=== PATIENT | male | born 1985 | race African-American/Black ===

== ENCOUNTER 2016-11-30 09:03 | Emergency (ER) | payer MEDICAID ==
[~2016-11-30] VITALS: Ht 188 cm; Wt 83.9 kg
[2016-11-30] MEDS ORDERED: Morphine Sulfate 4mg/ml Inj IVP ONE ×3 (09:30→11:45)
[2016-11-30] MEDS ORDERED: Ketorolac 30mg Inj IV ONE (09:30)
[2016-11-30 09:40] LABS: BASOPHILS % (AUTO) 0.5 % (0.0-2.0); EOSINOPHILS % (AUTO) 0.3 % (0.0-3.0); LYMPHOCYTES % (AUTO) 19.2 % (20.0-45.0); MEAN CORPUSCULAR HEMOGLOBIN 31.4 PG (27.0-31.0); MEAN CORPUSCULAR HGB CONC 33.9 G/DL (32.0-36.0); MEAN CORPUSCULAR VOLUME 93 FL (80-99); MEAN PLATELET VOLUME 7.5 FL (6.5-10.1); MONOCYTES % (AUTO) 4.4 % (1.0-10.0); NEUTROPHILS % (AUTO) 75.6 % (45.0-75.0); PLATELET COUNT 229 K/UL (150-450); RED BLOOD COUNT 4.57 M/UL (4.70-6.10); RED CELL DISTRIBUTION WIDTH 12.5 % (11.6-14.8); WHITE BLOOD COUNT 13.6 K/UL (4.8-10.8)
[2016-11-30 09:51] LABS: ALANINE AMINOTRANSFERASE 15 U/L (3-41); ALBUMIN/GLOBULIN RATIO 1.3 (1.0-2.7); ANION GAP 10 (5-15); ASPARTATE AMINO TRANSFERASE 20 U/L (5-40); CALCIUM 8.8 mg/dL (8.6-10.2); CARBON DIOXIDE 30 mEQ/L (20-30); CHLORIDE 100 mEQ/L (98-107); GLOMERULAR FILTRATION RATE > 60 mL/min (>60); HEMOLYSIS 4; LIPASE 27 U/L (< 60); POTASSIUM 3.8 mEQ/L (3.4-4.9); SODIUM 140 mEQ/L (135-145); TOTAL PROTEIN 7.4 g/dL (6.6-8.7); TROPONIN I < 0.30 ng/mL (<=0.30)
[2016-11-30 10:00] VITALS: BP 127/57
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
[2016-11-30 11:55] LABS: APPEARANCE,URINE CLEAR; KETONES,URINE NEGATIVE (NEGATIVE); LEUKOCYTE ESTERASE ,URINE NEGATIVE (NEGATIVE); NITRITE,URINE NEGATIVE (NEGATIVE); PH,URINE 8 (4.5-8.0); PROTEIN,URINE NEGATIVE (NEGATIVE); UROBILINOGEN,URINE NORMAL MG/DL (0.0-1.0)
[2016-11-30 12:00] VITALS: BP 156/75
[2016-11-30] MEDS ORDERED: BENTYL10 MG ORAL (12:03)
[2016-11-30] MEDS ORDERED: NORCO 5-325 TA1 EACH ORAL (12:03)
[2016-11-30] MEDS ORDERED: RANITIDINE HCL150 MG ORAL (12:03)
[2016-11-30] MEDS ORDERED: ZOFRAN ODT4 MG ORAL (12:03)
[2016-11-30 12:10] VITALS: BP 136/76
--- NOTE | 2016-11-30 14:26 | Emergency Room Report ---
History of Present Illness General Chief Complaint: Abdominal Pain Source: Patient Present Illness HPI 31-year-old male presents ED complaining of abdominal pain with vomiting and diarrhea. States symptoms started this morning. Patient discussed pain is sharp, 8 out 10, upper abdomen, nonradiating. Notes multiple episodes of vomiting and diarrhea. Denies chest pain or shortness of breath. No fevers or chills. No other aggravating relieving factors. Denies any other associated symptom Allergies: Coded Allergies: No Known Allergies (Unverified , 11/30/16) Patient History Past Medical History: GERD Past Surgical History: none Pertinent Family History: none Social History: Denies: smoking, alcohol use, drug use Immunizations: UTD Reviewed Nursing Documentation: PMH: Agreed, PSxH: Agreed Nursing Documentation-PMH Hx Gastrointestinal Problems: Yes - GASTRITIS Review of Systems All Other Systems: negative except mentioned in HPI Physical Exam Vital Signs Date Time Temp Pulse Resp B/P (MAP) Pulse Ox O2 Delivery O2 Flow Rate FiO2 11/30/16 08:58 97.5 80 18 133/75 99 11/30/16 10:00 Room Air Sp02 EP Interpretation: reviewed, normal General Appearance: alert, GCS 15, non-toxic, mild distress Head: normocephalic, atraumatic Eyes: bilateral eye normal inspection, bilateral eye PERRL ENT: hearing grossly normal, normal pharynx, no angioedema, normal voice Neck: full range of motion, supple/symm/no masses Respiratory: chest non-tender, lungs clear, normal breath sounds, speaking full sentences Cardiovascular #1: regular rate, rhythm, no edema Cardiovascular #2: 2+ carotid (R), 2+ carotid (L), 2+ radial (R), 2+ radial (L) , 2+ dorsalis pedis (R), 2+ dorsalis pedis (L) Gastrointestinal: normal bowel sounds, soft, non-distended, no guarding, no rebound, tenderness Rectal: deferred Genitourinary: normal inspection, no CVA tenderness Musculoskeletal: back normal, gait/station normal, normal range of motion, non- tender Neurologic: alert, oriented x3, responsive, motor strength/tone normal, sensory intact, speech normal Psychiatric: judgement/insight normal, memory normal, no suicidal/homicidal ideation, anxious Reflexes: 3+ bicep (R), 3+ bicep (L), 3+ tricep (R), 3+ tricep (L), 3+ knee (R) , 3+ knee (L) Skin: normal color, no rash, warm/dry, well hydrated Lymphatic: no adenopathy Medical Decision Making Diagnostic Impression: Primary Impression: Abdominal pain Qualified Codes: R10.13 - Epigastric pain Additional Impression: Gastroenteritis ER Course Hospital Course 31-year-old M presents to ED with abdominal pain, vomiting, diarrhea Differential diagnosis includes-appendicitis, cholecystitis, small bowel obstruction, gastritis, Clinical course Patient placed on stretcher. After initial history and physical I ordered labs , IV fluids, pain medications and CT scan Labs - noted leukocytosis, electrolytes ok, LFTs normal, UA unremarkable CT scan shows no acute pathology Upon reassessment, patient states pain has improved. Given improvement in symptoms and lack of acute findings, I believe patient can be safely discharged to home. Patient agrees with plan I feel this is a highly complex case requiring extensive working including EKG/ Rhythm strip, Xray/CT/US, Blood/urine lab work, repeat exams while in ED, and administration of strong opiates/narcotics for pain control, admission to hospital or close patient follow up. Diagnosis - abdominal pain, gastroenteritis Stable and discharged to home with Rx Bentyl, Zofran, Zantac, [place]. Followup with PMD. Return to ED if symptoms recur or worsen Labs Test 11/30/16 09:15 11/30/16 11:30 White Blood Count 13.6 K/UL (4.8-10.8) Red Blood Count 4.57 M/UL (4.70-6.10) Hemoglobin 14.4 G/DL (14.2-18.0) Hematocrit 42.4 % (42.0-52.0) Mean Corpuscular Volume 93 FL (80-99) Mean Corpuscular Hemoglobin 31.4 PG (27.0-31.0) Mean Corpuscular Hemoglobin Concent 33.9 G/DL (32.0-36.0) Red Cell Distribution Width 12.5 % (11.6-14.8) Platelet Count 229 K/UL (150-450) Mean Platelet Volume 7.5 FL (6.5-10.1) Neutrophils (%) (Auto) 75.6 % (45.0-75.0) Lymphocytes (%) (Auto) 19.2 % (20.0-45.0) Monocytes (%) (Auto) 4.4 % (1.0-10.0) Eosinophils (%) (Auto) 0.3 % (0.0-3.0) Basophils (%) (Auto) 0.5 % (0.0-2.0) Sodium Level 140 mEQ/L (135-145) Potassium Level 3.8 mEQ/L (3.4-4.9) Chloride Level 100 mEQ/L (98-107) Carbon Dioxide Level 30 mEQ/L (20-30) Anion Gap 10 (5-15) Blood Urea Nitrogen 6 mg/dL (7-23) Creatinine 1.0 mg/dL (0.7-1.2) Estimat Glomerular Filtration Rate > 60 mL/min (>60) Glucose Level 132 mg/dL (74-106) Calcium Level 8.8 mg/dL (8.6-10.2) Total Bilirubin < 0.2 mg/dL (0.0-1.2) Aspartate Amino Transf (AST/SGOT) 20 U/L (5-40) Alanine Aminotransferase (ALT/SGPT) 15 U/L (3-41) Alkaline Phosphatase 59 U/L (40-129) Troponin I < 0.30 ng/mL (<=0.30) Total Protein 7.4 g/dL (6.6-8.7) Albumin 4.3 g/dL (3.5-5.2) Globulin 3.1 g/dL Albumin/Globulin Ratio 1.3 (1.0-2.7) Lipase 27 U/L (< 60) Urine Color Pale yellow Urine Appearance Clear Urine pH 8 (4.5-8.0) Urine Specific [place] 1.015 (1.005-1.035) Urine Protein Negative (NEGATIVE) Urine Glucose (UA) Negative (NEGATIVE) Urine Ketones Negative (NEGATIVE) Urine Occult Blood Negative (NEGATIVE) Urine Nitrite Negative (NEGATIVE) Urine Bilirubin Negative (NEGATIVE) Urine Urobilinogen Normal MG/DL (0.0-1.0) Urine Leukocyte Esterase Negative (NEGATIVE) CT/MRI/US Diagnostic Results CT/MRI/US Diagnostic Results : Imaging Test Ordered: CT A/P Impression no acute process Last Vital Signs Date Time Temp Pulse Resp B/P (MAP) Pulse Ox O2 Delivery O2 Flow Rate FiO2 11/30/16 12:10 55 14 136/76 Room Air 11/30/16 12:00 97.8 100 Status: improved Disposition: HOME, SELF-CARE Condition: Stable Scripts Ondansetron Odt* (ZOFRAN ODT*) 4 Mg Tab.rapdis 4 MG ORAL Q6H Y for Nausea & Vomiting, #30 TAB 0 Refills Prov: CECILLE DOMINGUEZ M.D. 11/30/16 Ranitidine Hcl* (ZANTAC*) 150 Mg Tablet 150 MG ORAL TWICE A DAY, #30 TAB Prov: CECILLE DOMINGUEZ M.D. 11/30/16 Dicyclomine Hcl* (BENTYL*) 10 Mg Capsule 10 MG ORAL FOUR TIMES A DAY, #20 CAP Prov: CECILLE DOMINGUEZ M.D. 11/30/16 Hydrocodone Bit/Acetaminophen 5-325* (NORCO 5-325*) 1 Each Tablet 1 TAB ORAL Q6H Y for For Pain, #10 TAB 0 Refills Prov: CECILLE DOMINGUEZ M.D. 11/30/16 Referrals: NOT [facility]OSEN [facility]/,REFERRING (PCP) Patient Instructions: Viral Gastroenteritis, Adult CECILLE DOMINGUEZ M.D. Nov 30, 2016 14:26
[2016-11-30] MEDS ORDERED: OMEPRAZOLE20 M2 ORAL (16:46)
[2016-11-30] MEDS ORDERED: PEPCID40 MG PO (16:46)
== END 2016-11-30 12:15 | disposition home or self-care (01) ==
LOC: EDBD 09:03 → EMR 09:53
DX: K52.9 Noninfective gastroenteritis and colitis, unspecified (principal)
CPT/HCPCS: 36415; 74177; 80053; 81003; 83690; 84484; 85025; 96361; 96374; 96375; 99284; J1885; J2270; J2405; Q9967

== ENCOUNTER 2016-11-30 15:01 | Emergency (ER) | payer MEDICAID ==
[~2016-11-30] VITALS: Ht 188 cm; Wt 79.4 kg
[~2016-11-30 15:01] MED LIST: BENTYL10 MG ORAL; NORCO 5-325 TA1 EACH ORAL; RANITIDINE HCL150 MG ORAL; ZOFRAN ODT4 MG ORAL
[2016-11-30] MEDS ORDERED: Lidocaine 2% Visc 15ml soln ORAL ONE (15:30)
[2016-11-30] MEDS ORDERED: Mylanta II UD 30ml ORAL ONE (15:30)
[2016-11-30] MEDS ORDERED: Dicyclomine HCl 10mg/5ml oral soln ORAL ONE (15:30)
[2016-11-30] MEDS ORDERED: Famotidine 20 MG/ 2ML VIAL IVP ONE (15:45)
[2016-11-30] MEDS ORDERED: Pantoprazole Inj IVP ONE (16:15)
[2016-11-30 16:26] VITALS: BP 148/84
[2016-11-30] MEDS ORDERED: Metoclopramide 10mg/2ml Inj IVP ONE (16:30)
[2016-11-30] MEDS ORDERED: Morphine Sulfate 4mg/ml Inj IVP ONE (16:30)
[2016-11-30] MEDS ORDERED: OMEPRAZOLE20 M2 ORAL (16:46)
[2016-11-30] MEDS ORDERED: PEPCID40 MG PO (16:46)
[2016-11-30 17:22] VITALS: BP 115/59
--- NOTE | 2016-11-30 18:08 | Emergency Room Report ---
History of Present Illness General Chief Complaint: Abdominal Pain Source: Patient Present Illness HPI The patient is a 31-year-old male presenting for abdominal pain. He was seen in this emergency department earlier today for the same complaint. The patient had a full workup done including blood work and CT scan and he was discharged home with prescription for pain medications. He received morphine in the emergency department and states that he was feeling better but then pain reappeared at home. It is now 10 out of 10 burning sensation to the mid upper abdomen and mid chest. He denies any known provoking factors. He is unsure of GERD history. He states he has IBS. He also admits to feeling of nausea with frequent liquid in his mouth. He denies other symptoms including fever, chills , shortness of breath, headache, back pain, rash, diarrhea, constipation Allergies: Coded Allergies: No Known Allergies (Unverified , 11/30/16) Patient History Past Medical History: see triage record Pertinent Family History: none Reviewed Nursing Documentation: PMH: Agreed, PSxH: Agreed Nursing Documentation-PMH Hx Gastrointestinal Problems: Yes - GASTRITIS Review of Systems All Other Systems: negative except mentioned in HPI Physical Exam Vital Signs Date Time Temp Pulse Resp B/P (MAP) Pulse Ox O2 Delivery O2 Flow Rate FiO2 11/30/16 15:05 97.5 60 15 148/84 99 Room Air Sp02 EP Interpretation: reviewed, normal General Appearance: no apparent distress, alert, GCS 15, non-toxic Head: normocephalic, atraumatic Eyes: bilateral eye normal inspection, bilateral eye PERRL ENT: hearing grossly normal, normal pharynx, no angioedema, normal voice Neck: full range of motion, supple/symm/no masses Respiratory: chest non-tender, lungs clear, normal breath sounds, speaking full sentences Cardiovascular #1: regular rate, rhythm, no edema Gastrointestinal: normal bowel sounds, soft, no mass, no guarding, tenderness - epigastric Rectal: deferred Genitourinary: normal inspection, no CVA tenderness Musculoskeletal: back normal, gait/station normal, normal range of motion, non- tender Neurologic: alert, oriented x3, responsive, motor strength/tone normal, sensory intact, speech normal Psychiatric: judgement/insight normal, memory normal, mood/affect normal, no suicidal/homicidal ideation Skin: normal color, no rash, warm/dry, well hydrated Lymphatic: no adenopathy Medical Decision Making PA Attestation Dr. Meredith is my supervising physician. Patient management was discussed with my supervising physician Diagnostic Impression: Primary Impression: Gastritis Qualified Codes: K29.00 - Acute gastritis without bleeding ER Course The patient is a 31-year-old male presenting for abdominal pain. Differential diagnoses considered but not limited to: Gastritis, esophagitis, GERD, gastroenteritis, peptic ulcer, perforated ulcer, among others Physical exam: Afebrile. No apparent distress There is tenderness to palpation over epigastric region only. No guarding. Nondistended. RRR Lungs clear to auscultation bilaterally Chest x-ray unremarkable. No signs of perforation The patient is given a GI cocktail and IV Pepcid and Protonix He states the pain has decreased but is still significant. He is then given morphine and states she is ready to be discharged Is discharged with prescription for Pepcid and omeprazole. He needs to follow up with his primary doctor and was told he needs endoscopy done. He understands. He is given a sheet of potential primary doctor locations as he does not have one. ER precautions given Chest X-Ray Diagnostic Results Chest X-Ray Diagnostic Results : Chest X-Ray Ordered: Yes # of Views/Limited/Complete: 1 View Indication: Chest Pain EP Interpretation: Yes Interpretation: no consolidation, no effusion, no pneumothorax, no acute cardiopulmonary disease Impression: No acute disease Electronically Signed by: Michael Meredith MD PA Scribe Text I am acting as scribe for my supervising physician. My supervising physician's interpretation of the chest xrays are there is no consolidation, no effusion, no acute cardiopulmonary disease, no pneumothorax Last Vital Signs Date Time Temp Pulse Resp B/P (MAP) Pulse Ox O2 Delivery O2 Flow Rate FiO2 11/30/16 17:22 97.5 61 15 115/59 99 Room Air Status: improved Disposition: HOME, SELF-CARE Condition: Improved Scripts Omeprazole (OMEPRAZOLE) 20 Mg Capsule. 20 MG ORAL DAILY, #30 CAP Prov: TERZIAN,STAN P.A. 11/30/16 Famotidine (PEPCID) 40 Mg Tablet 40 MG PO QHS, #7 TAB 0 Refills Prov: TERZIAN,STAN P.A. 11/30/16 Patient Instructions: Gastritis, Adult Additional Instructions: I discussed my findings with the patient. All questions and concerns have been answered. Treatment and medication compliance have been addressed. I advised the patient that they need to follow up with PMD in 3-5 days. Return to ED if symptoms worsen, new symptoms arise, or if needed for any reason. Patient verbalized understanding of discharge instructions. STAN AVILA Nov 30, 2016 18:08
--- NOTE | 2016-12-01 09:57 | Diagnostic Imaging Report ---
Indication: Chest pain Technique: XRAY CHEST 1 V Comparison: None Findings: The cardiomediastinal silhouette is within normal limits. There is no focal consolidation, pneumothorax or pleural effusion. Osseous structures demonstrate no acute abnormality. Metallic density projects over the left lateral chest. Impression: No acute cardiopulmonary disease. Metallic density projecting over the left lateral chest. Clinical correlation recommended.
== END 2016-11-30 17:54 | disposition home or self-care (01) ==
LOC: EMR 15:40
DX: K29.70 Gastritis, unspecified, without bleeding (principal)
CPT/HCPCS: 71010; 96374; 96375; 99284; C9113; J2270; S0028

== ENCOUNTER 2017-05-31 08:45 | Emergency (ER) | payer MEDICAID, OTHER ==
[~2017-05-31] VITALS: Ht 188 cm; Wt 72.6 kg
[~2017-05-31 08:45] MED LIST changes: +OMEPRAZOLE20 M2 ORAL; +PEPCID40 MG PO
[2017-05-31 09:03] VITALS: BP 97/58
--- NOTE | 2017-05-31 09:05 | Emergency Room Report ---
History of Present Illness General Chief Complaint: Upper Extremity Injury Source: Patient, Medical Record Present Illness HPI 31-year-old male presenting with right hand pain since yesterday. States that he punched an elevator wall yesterday as he was trying to redirect his anger. Sustained an abrasion to his right hand, states his tetanus is up-to-date. No human bites No other complaints Allergies: Coded Allergies: No Known Allergies (Unverified , 11/30/16) Patient History Past Medical History: see triage record Past Surgical History: none Pertinent Family History: none Reviewed Nursing Documentation: PMH: Agreed; PSxH: Agreed Nursing Documentation-PM Past Medical History: No History, Except For Hx Gastrointestinal Problems: Yes - GASTRITIS Review of Systems All Other Systems: negative except mentioned in HPI Physical Exam Vital Signs Date Time Temp Pulse Resp B/P (MAP) Pulse Ox O2 Delivery O2 Flow Rate FiO2 05/31/17 08:49 97.8 82 18 97/58 98 Room Air 97.9 Sp02 EP Interpretation: reviewed, normal General Appearance: alert, GCS 15, non-toxic, mild distress Head: normocephalic, atraumatic Eyes: bilateral eye normal inspection, bilateral eye PERRL, bilateral eye EOMI ENT: normal ENT inspection, normal pharynx, normal voice, moist mucus membranes Neck: normal inspection, full range of motion, supple Respiratory: normal inspection, lungs clear, normal breath sounds, no respiratory distress, no retraction, no wheezing, speaking full sentences, chest symmetrical Cardiovascular #1: normal inspection, regular rate, rhythm, no edema, normal capillary refill Cardiovascular #2: 2+ radial (R), 2+ radial (L) Gastrointestinal: normal inspection, non tender, soft, non-distended, no guarding Genitourinary: no CVA tenderness Musculoskeletal: other - Right hand with edema, ecchymosis, superficial well- healed abrasion noted to right hand, fourth and fifth metacarpal region, Limited range of motion of the hand secondary to pain, medial ulnar and radial nerve are intact Neurologic: normal inspection, alert, oriented x3, responsive, motor strength/ tone normal, sensory intact, normal gait, speech normal Psychiatric: normal inspection, judgement/insight normal, memory normal Skin: normal inspection, normal color, no rash, warm/dry, well hydrated, normal turgor Procedures Splinting Splinting : Consent: Verbal Location: R hand Hand-Made Type: plaster Splint: ulnar Pre-Proc Neuro Vasc Exam: normal Post-Proc Neuro Vasc Exam: normal Patient Tolerated: Well Complications: None Medical Decision Making Diagnostic Impression: Primary Impression: Fracture of fifth metacarpal bone of right hand ER Course 31-year-old male with right hand pain after punching a wall, occurred 5pm yesterday DDX: Contusion vs. fracture Plan: Pain control with motrin XR ER course: Patient already took Motrin prior to arrival X-ray noting 5th metacarpal fracture with minimal angulation ulnar gutter splint applied, before and after neurovascularly intact. Disposition: Patient is to be discharged home Patient instructed to keep splint on at all times, and to follow up with orthopedic surgery in 3-4 days without fail. pt R hand dominant, told that if he doesnt follow up could have significant immobility of hand environmental associate Patient educated to rest, ice, and elevate extremity and to avoid vigorous activity. Strict precautions discussed with patient on when to return to the emergency room including increased redness or swelling joints, increased pain/swelling of extremity, fever or chills, which could indicate severe illness. Please note that this Emergency Department Report was dictated using [employer] technology software, occasionally this can lead to erroneous entry secondary to interpretation by the dictation equipment. Xray ordered: Right hand 3 view Indication: Pain EP Interpretation: Yes Interpretation: 5th metacarpal shaft fx with min angulation Impression: 5th metacarpal shaft fx with min angulation Electronically signed by Marybeth Yoon MD Xray: Right wrist 3 view Indication: Pain EP Interpretation: Yes Interpretation: 5th metacarpal shaft fx with min angulation Impression:5th metacarpal shaft fx with min angulation Electronically signed by Marybeth Yoon MD Last Vital Signs Date Time Temp Pulse Resp B/P (MAP) Pulse Ox O2 Delivery O2 Flow Rate FiO2 05/31/17 08:49 97.8 82 18 97/58 98 Room Air 97.9 Disposition: HOME, SELF-CARE Condition: Improved Marybeth Yoon M.D. May 31, 2017 09:05
[2017-05-31] MEDS ORDERED: Lidocaine 1% Plain 30 ml INJ ONE ×2 (09:19→09:30)
--- NOTE | 2017-05-31 09:45 | Diagnostic Imaging Report ---
Clinical Indication:Right hand pain since yesterday due to trauma Technique: 3 views of the right wrist Comparison: None Findings: There is an old healed angulated fracture deformity of the fifth metacarpal. No acute fractures. No dislocations. The joint spaces are preserved. Impression: No acute bony trauma
--- NOTE | 2017-05-31 09:48 | Diagnostic Imaging Report ---
Indication: Right hand pain, punched elevator wall Technique: 3 views right hand Comparison: none Findings: There is an old healed fracture deformity of the fifth metacarpal. No acute fractures. No dislocations. Joint spaces are preserved. Impression: No acute process
[2017-05-31] MEDS ORDERED: KEFLEX500 MG ORAL (09:50)
[2017-05-31] MEDS ORDERED: IBUPROFEN600 MG ORAL (09:50)
[2017-05-31 10:10] VITALS: BP 112/62
== END 2017-05-31 10:13 | disposition home or self-care (01) ==
LOC: EMR 09:16
DX: S62.306A Unspecified fracture of fifth metacarpal bone, right hand, initial encounter for closed fracture (principal); W22.01XA Walked into wall, initial encounter; Y92.9 Unspecified place or not applicable
CPT/HCPCS: 29125; 73110; 73130; 99284; J2001

== ENCOUNTER 2017-10-24 08:11 | Emergency (ER) | payer OTHER ==
[~2017-10-24] VITALS: Ht 188 cm; Wt 72.6 kg
[~2017-10-24 08:11] MED LIST changes: +IBUPROFEN600 MG ORAL; +KEFLEX500 MG ORAL
[2017-10-24 08:44] LABS: BASOPHILS % (AUTO) 0.9 % (0.0-2.0); EOSINOPHILS % (AUTO) 1.3 % (0.0-3.0); HEMATOCRIT 44.7 % (42.0-52.0); HEMOGLOBIN 14.7 G/DL (14.2-18.0); LYMPHOCYTES % (AUTO) 26.6 % (20.0-45.0); MEAN CORPUSCULAR VOLUME 91 FL (80-99); MONOCYTES % (AUTO) 6.8 % (1.0-10.0); NEUTROPHILS % (AUTO) 64.4 % (45.0-75.0); PLATELET COUNT 197 K/UL (150-450); RED CELL DISTRIBUTION WIDTH 12.8 % (11.6-14.8); WHITE BLOOD COUNT 9.7 K/UL (4.8-10.8)
[2017-10-24] MEDS ORDERED: Ketorolac 30mg Inj IV ONE ×2 (08:45→09:45)
[2017-10-24] MEDS ORDERED: Mylanta II UD 30ml ORAL ONE (08:45)
[2017-10-24] MEDS ORDERED: Lidocaine 2% Visc 15ml soln PO ONE (08:45)
[2017-10-24] MEDS ORDERED: Dicyclomine HCl 10mg/5ml oral soln ORAL ONE (08:45)
[2017-10-24 08:57] LABS: ANION GAP 7 mmol/L (5-15); BLOOD UREA NITROGEN 15 mg/dL (7-18); CARBON DIOXIDE 28 MMOL/L (21-32); CHLORIDE 108 MMOL/L (98-107); POTASSIUM 4.2 MMOL/L (3.5-5.1); SODIUM 142 MMOL/L (136-145)
[2017-10-24 09:00] VITALS: BP 131/91
[2017-10-24 09:02] LABS: ALANINE AMINOTRANSFERASE 38 U/L (12-78); ALBUMIN 4.2 G/DL (3.4-5.0); ALBUMIN/GLOBULIN RATIO 1.1 (1.0-2.7); ALKALINE PHOSPHATASE 72 U/L (46-116); ASPARTATE AMINO TRANSFERASE 29 U/L (15-37); BILIRUBIN,TOTAL 0.2 MG/DL (0.2-1.0)
[2017-10-24] MEDS ORDERED: PEPCID AC10 MG PO (09:06)
[2017-10-24] MEDS ORDERED: ZOFRAN4 MG ORAL (09:06)
--- NOTE | 2017-10-24 09:06 | Emergency Room Report ---
History of Present Illness General Chief Complaint: Abdominal Pain Source: Patient Present Illness HPI This patient c/o n/v 24 hours. Severe sharp epigastric abd pain. No change in bowels, no fever. +hx same dx gastritis. Uses alcohol occasionally denies heavy drinking. Uses marijuana ~one/day. Allergies: Coded Allergies: No Known Allergies (Unverified , 11/30/16) Nursing Documentation-H Past Medical History: No History, Except For Hx Gastrointestinal Problems: Yes - GASTRITIS Review of Systems Constitutional: Reports: no symptoms Eye: Reports: no symptoms ENT: Reports: no symptoms Respiratory: Reports: no symptoms Cardiovascular: Reports: no symptoms Gastrointestinal: Reports: abdominal pain, nausea, vomiting Genitourinary: Reports: no symptoms Musculoskeletal: Reports: no symptoms Skin: Reports: no symptoms Psychiatric: Reports: no symptoms Neurological: Reports: no symptoms Endocrine: Reports: no symptoms Hematologic/Lymphatic: Reports: no symptoms Allergic: Reports: no symptoms Physical Exam Vital Signs Date Time Temp Pulse Resp B/P (MAP) Pulse Ox O2 Delivery O2 Flow Rate FiO2 10/24/17 08:15 62 22 94/48 98 Room Air Sp02 EP Interpretation: reviewed, normal General Appearance: normal inspection, well appearing, no apparent distress, alert, GCS 15, non-toxic Head: normocephalic, atraumatic Eyes: bilateral eye normal inspection, bilateral eye PERRL, bilateral eye EOMI ENT: normal ENT inspection, hearing grossly normal, normal pharynx, no angioedema, normal voice, moist mucus membranes Neck: normal inspection, full range of motion, supple, no meningismus, no bony tend Respiratory: normal inspection, lungs clear, normal breath sounds, no rhonchi, no respiratory distress, no retraction, no accessory muscle use, no wheezing Cardiovascular #1: normal inspection, regular rate, rhythm, no edema Gastrointestinal: normal inspection, normal bowel sounds, soft, no mass, non- distended, other - tender epigastrum Musculoskeletal: gait/station normal, normal range of motion Neurologic: normal inspection, alert, oriented x3, responsive, motor strength/ tone normal Psychiatric: normal inspection, judgement/insight normal, memory normal Suicide Risk Assessment: Suicidal Ideation: No Had intent to initiate attempt: No Pt's plan for suicide attempt: No Has means to complete attempt: No Skin: normal inspection, normal color, no rash, warm/dry Medical Decision Making Diagnostic Impression: Primary Impression: Gastritis Additional Impressions: Abdominal pain Amphetamine abuse ER Course improved after IV fluids, IV meds, IV Zofran however he kept complaining a lot, wanted more meds (narcotics.) drug screen noted. objectively he is substantially improved. may also be a component of cyclic vomiting syndrome. Last Vital Signs Date Time Temp Pulse Resp B/P (MAP) Pulse Ox O2 Delivery O2 Flow Rate FiO2 10/24/17 08:15 62 22 94/48 98 Room Air Disposition: HOME, SELF-CARE Condition: Stable Scripts Famotidine (PEPCID AC) 10 Mg Tablet 10 MG PO BID, #20 TAB Prov: Ray Crowley M.D. 10/24/17 Ondansetron (Zofran) 4 Mg Tablet 4 MG ORAL Q6H PRN for Nausea & Vomiting, #30 TAB 0 Refills Prov: Ray Crowley M.D. 10/24/17 Referrals: [facility],REFERRING (PCP) Patient Instructions: Abdominal Pain, Adult Ray Crowley M.D. Oct 24, 2017 09:06
[2017-10-24] MEDS ORDERED: Ketorolac 30mg Inj ONE (09:30)
[2017-10-24 10:13] LABS: APPEARANCE,URINE CLEAR; BILIRUBIN, URINE NEGATIVE (NEGATIVE); COLOR,URINE PALE YELLOW; GLUCOSE, URINE (UA) NEGATIVE (NEGATIVE); KETONES,URINE NEGATIVE (NEGATIVE); LEUKOCYTE ESTERASE ,URINE NEGATIVE (NEGATIVE); NITRITE,URINE NEGATIVE (NEGATIVE); PH,URINE 6 (4.5-8.0); PROTEIN,URINE NEGATIVE (NEGATIVE); UROBILINOGEN,URINE NORMAL MG/DL (0.0-1.0)
[2017-10-24 10:42] VITALS: BP 131/91
--- NOTE | 2017-10-24 11:00 | Diagnostic Imaging Report ---
Indication: Abdominal pain Technique: Supine view of the abdomen Comparison: none Findings: Bowel gas pattern is unremarkable. No unusual masses or calcifications. Impression: No acute process
[2017-10-24] MEDS ORDERED: TRAMADOL HCL50 MG ORAL (18:18)
== END 2017-10-24 10:45 | disposition home or self-care (01) ==
LOC: EMR 08:46
DX: K29.70 Gastritis, unspecified, without bleeding (principal); R10.9 Unspecified abdominal pain; F15.10 Other stimulant abuse, uncomplicated; F12.10 Cannabis abuse, uncomplicated
CPT/HCPCS: 36415; 74018; 80053; 80307; 80329; 81001; 83690; 85025; 96361; 96374; 96375; 96376; 99284; J1885; J2405; S0028

== ENCOUNTER 2017-10-24 15:42 | Emergency (ER) | payer OTHER ==
[~2017-10-24] VITALS: Ht 188 cm; Wt 70.3 kg
[~2017-10-24 15:42] MED LIST changes: +PEPCID AC10 MG PO; +ZOFRAN4 MG ORAL
[2017-10-24 16:00] VITALS: BP 150/84
[2017-10-24] MEDS ORDERED: Morphine Sulfate 4mg/ml Inj (IV USE ONLY) IVP ONE ×2 (16:00→17:30)
[2017-10-24] MEDS ORDERED: Metoclopramide 10mg/2ml Inj IVP ONE (16:00)
--- NOTE | 2017-10-24 16:18 | Emergency Room Report ---
History of Present Illness General Chief Complaint: Abdominal Pain Source: Patient, EMS Present Illness HPI Patient was discharged a few hours ago from this facility for epigastric pain and vomiting. He has a history of gastritis. He's been vomiting uncontrollably. There is no blood in the vomit however he has some blood in stool. The patient denies fevers or chills. The pain is 8/10 at this time. He is given several doses of Toradol here and also Zofran and a GI cocktail. He states he didn't feel well when he left the emergency department. He does drink alcohol but hasn't been drinking recently. He did smoke cannabis when he went home to try and calm his stomach. The pain does not radiate. Pain rated 10/10, burning and constant. Feels weak. When his seen earlier if he had normal white count, normal H&H, elevated chloride and tox positive for THC and amphetamines. He was seen here several years ago similar complaints. He had to return and get more aggressive analgesia but then once the pain was controlled he was able to be discharged. No fevers, chills, dysuria, joint pain, headache, rashes, depression. Allergies: Coded Allergies: No Known Allergies (Unverified , 11/30/16) Patient History Past Medical History: see triage record Social History: Reports: smoking, alcohol use, drug use Social History Narrative with girlfriend Reviewed Nursing Documentation: PMH: Agreed; PSxH: Agreed Nursing Documentation-PMH Hx Gastrointestinal Problems: Yes - GASTRITIS Review of Systems All Other Systems: negative except mentioned in HPI Physical Exam Vital Signs Date Time Temp Pulse Resp B/P (MAP) Pulse Ox O2 Delivery O2 Flow Rate FiO2 10/24/17 15:38 97.3 55 20 138/73 99 97.3 Sp02 EP Interpretation: reviewed, normal General Appearance: alert, GCS 15, non-toxic, mild distress Head: normocephalic, atraumatic Eyes: bilateral eye PERRL, bilateral eye Scleral Injection ENT: moist mucus membranes Neck: supple Respiratory: lungs clear, normal breath sounds Cardiovascular #1: regular rate, rhythm Cardiovascular #2: 2+ radial (R) Gastrointestinal: normal inspection, no mass, non-distended, no guarding, no rebound, tenderness, decreased bowel sounds, scaphoid Genitourinary: no CVA tenderness Musculoskeletal: back normal, gait/station normal, normal range of motion Neurologic: alert, oriented x3, grossly normal Psychiatric: anxious - In pain Skin: normal inspection, warm/dry Medical Decision Making Diagnostic Impression: Primary Impression: Abdominal pain Qualified Codes: R10.13 - Epigastric pain Additional Impressions: Gastritis Qualified Codes: K29.20 - Alcoholic gastritis without bleeding Substance abuse ER Course Patient with history of gastritis 3 presents with continued abdominal pain and vomiting. Differential includes gastritis, gastroenteritis, peptic ulcer disease amongst others. The patient will be reevaluated with labs and treated with IV hydration, Reglan, Benadryl and also morphine. He received a dose of famotidine earlier today. Labs with slightly higher WBC, normal H/H. CMP normal. CK elevated slightly. Patient improved with treatment. Tolerates PO and feels well enough to go home. Patient stable for outpatient observation and treatment. Laboratory Tests Test 10/24/17 16:20 White Blood Count 11.9 K/UL (4.8-10.8) H Red Blood Count 4.85 M/UL (4.70-6.10) Hemoglobin 15.3 G/DL (14.2-18.0) Hematocrit 43.1 % (42.0-52.0) Mean Corpuscular Volume 89 FL (80-99) Mean Corpuscular Hemoglobin 31.6 PG (27.0-31.0) H Mean Corpuscular Hemoglobin Concent 35.5 G/DL (32.0-36.0) Red Cell Distribution Width 12.5 % (11.6-14.8) Platelet Count 216 K/UL (150-450) Mean Platelet Volume 7.3 FL (6.5-10.1) Neutrophils (%) (Auto) 90.0 % (45.0-75.0) H Lymphocytes (%) (Auto) 7.1 % (20.0-45.0) L Monocytes (%) (Auto) 2.6 % (1.0-10.0) Eosinophils (%) (Auto) 0.0 % (0.0-3.0) Basophils (%) (Auto) 0.3 % (0.0-2.0) Prothrombin Time 9.9 SEC (9.30-11.50) Prothrombin Time INR 0.9 (0.9-1.1) PTT 24 SEC (23-33) Sodium Level 143 MMOL/L (136-145) Potassium Level 4.1 MMOL/L (3.5-5.1) Chloride Level 107 MMOL/L (98-107) Carbon Dioxide Level 26 MMOL/L (21-32) Anion Gap 10 mmol/L (5-15) Blood Urea Nitrogen 13 mg/dL (7-18) Creatinine 1.0 MG/DL (0.55-1.30) Estimate Glomerular Filtration Rate > 60 mL/min (>60) Glucose Level 117 MG/DL (74-106) H Calcium Level 10.1 MG/DL (8.5-10.1) Total Bilirubin 0.4 MG/DL (0.2-1.0) Aspartate Amino Transferase (AST) 27 U/L (15-37) Alanine Aminotransferase (ALT) 40 U/L (12-78) Alkaline Phosphatase 68 U/L (46-116) Total Creatine Kinase 326 U/L (26-308) H Total Protein 8.6 G/DL (6.4-8.2) H Albumin 4.5 G/DL (3.4-5.0) Globulin 4.1 g/dL Albumin/Globulin Ratio 1.1 (1.0-2.7) Lipase 83 U/L (73-393) Last Vital Signs Date Time Temp Pulse Resp B/P (MAP) Pulse Ox O2 Delivery O2 Flow Rate FiO2 10/24/17 18:38 98.5 57 12 141/72 100 Room Air Status: improved Disposition: HOME, SELF-CARE Condition: Improved Scripts Tramadol Hcl* (ULTRAM*) 50 Mg Tablet 50 MG ORAL Q6H PRN for For Pain, #10 TAB 0 Refills Prov: Lit Barreto M.D. 10/24/17 Referrals: [facility],REFERRING (PCP) Lit Barreto M.D. Oct 24, 2017 16:18
[2017-10-24 16:30] VITALS: BP 143/85
[2017-10-24 16:34] LABS: HEMATOCRIT 43.1 % (42.0-52.0); HEMOGLOBIN 15.3 G/DL (14.2-18.0); MEAN CORPUSCULAR VOLUME 89 FL (80-99); PLATELET COUNT 216 K/UL (150-450); RED BLOOD COUNT 4.85 M/UL (4.70-6.10); RED CELL DISTRIBUTION WIDTH 12.5 % (11.6-14.8); WHITE BLOOD COUNT 11.9 K/UL (4.8-10.8)
[2017-10-24 16:35] LABS: BASOPHILS % (AUTO) 0.3 % (0.0-2.0); LYMPHOCYTES % (AUTO) 7.1 % (20.0-45.0); MONOCYTES % (AUTO) 2.6 % (1.0-10.0)
[2017-10-24 16:45] LABS: INR 0.9 (0.9-1.1)
[2017-10-24 16:47] LABS: ANION GAP 10 mmol/L (5-15); BLOOD UREA NITROGEN 13 mg/dL (7-18); CALCIUM 10.1 MG/DL (8.5-10.1); CARBON DIOXIDE 26 MMOL/L (21-32); CHLORIDE 107 MMOL/L (98-107); POTASSIUM 4.1 MMOL/L (3.5-5.1); SODIUM 143 MMOL/L (136-145)
[2017-10-24 16:52] LABS: ALANINE AMINOTRANSFERASE 40 U/L (12-78); ALBUMIN 4.5 G/DL (3.4-5.0); ALBUMIN/GLOBULIN RATIO 1.1 (1.0-2.7); ALKALINE PHOSPHATASE 68 U/L (46-116); ASPARTATE AMINO TRANSFERASE 27 U/L (15-37); BILIRUBIN,TOTAL 0.4 MG/DL (0.2-1.0); CREATINE KINASE 326 U/L (26-308)
[2017-10-24 18:00] VITALS: BP 129/75
[2017-10-24] MEDS ORDERED: TRAMADOL HCL50 MG ORAL (18:18)
[2017-10-24 18:34] VITALS: BP 141/72
[2017-10-24 18:37] LABS: APPEARANCE,URINE CLEAR; BILIRUBIN, URINE NEGATIVE (NEGATIVE); COLOR,URINE PALE YELLOW; GLUCOSE, URINE (UA) NEGATIVE (NEGATIVE); KETONES,URINE 2+ (NEGATIVE); LEUKOCYTE ESTERASE ,URINE NEGATIVE (NEGATIVE); NITRITE,URINE NEGATIVE (NEGATIVE); PH,URINE 6.5 (4.5-8.0); PROTEIN,URINE 2+ (NEGATIVE); UROBILINOGEN,URINE NORMAL MG/DL (0.0-1.0)
[2017-10-24 18:38] VITALS: BP 141/72
== END 2017-10-24 18:15 | disposition home or self-care (01) ==
LOC: EDBD 15:42 → EMR 16:09
DX: K29.20 Alcoholic gastritis without bleeding (principal); R10.13 Epigastric pain; F15.10 Other stimulant abuse, uncomplicated; F12.10 Cannabis abuse, uncomplicated; F17.200 Nicotine dependence, unspecified, uncomplicated
CPT/HCPCS: 36415; 80053; 81003; 82550; 83690; 85025; 85610; 85730; 96361; 96374; 96375; 96376; 99284; J2270; J2405; J2765